=== PATIENT | male | born 1990 | race Caucasian/White ===

== ENCOUNTER 2016-12-23 11:51 | Emergency (ER) | payer OTHER ==
[~2016-12-23] VITALS: Ht 170.2 cm; Wt 73.9 kg
[2016-12-23 11:53] VITALS: BP 119/66
--- NOTE | 2016-12-23 12:21 | Emergency Room Report ---
History of Present Illness General Chief Complaint: Lower Extremity Injury Source: Patient (ROSSI MARTINEZ) Present Illness HPI 26 y/o male complains of bilateral knee instability since 12/15/2016 patient states that he is currently in a rehabilitation as part of the rehabilitation he is started increasing his exercise. States that he's been exercising lower extremities more vigorously over the past 3 weeks and has now noticed that his right knee has been clicking, and giving way on him. States that he feels his ligament and anterior aspect of the right knee is coming out of place and he came back in. States symptoms are worse with running and with walking. There are no relieving factors. Denies having any pain. Describes having a local numbness-like feeling in the medial anterior aspect of the peripatellar region that is provoked with exercise and resolves with rest. Patient denies any LE numbness, tingling, pressure, paralysis, cyanosis, bruising, loss of sensation, or loss of range of motion. 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 (ROSSI MARTINEZ) Review of Systems All Other Systems: negative except mentioned in HPI (ROSSI MARTINEZ) Physical Exam Vital Signs Date Time Temp Pulse Resp B/P Pulse Ox O2 Delivery O2 Flow Rate FiO2 12/23/16 11:53 97.9 75 18 119/66 98 Room Air Sp02 EP Interpretation: reviewed, normal General Appearance: no apparent distress, alert, GCS 15, non-toxic Head: normocephalic, atraumatic Respiratory: no respiratory distress, speaking full sentences Cardiovascular #1: no edema, normal capillary refill Cardiovascular #2: 2+ dorsalis pedis (R), 2+ dorsalis pedis (L) Musculoskeletal: back normal, gait/station normal, normal range of motion, non- tender, no calf tenderness, other - Negative A/P Drawer, Neg Varus/Valgus stress , Neg Hernando, Neg thessaly/pivot shift, No masses felt on popliteal fossa, No edema of knee. Knee has FROM. NTTP, mild crepitus noted medial superior aspect of right patella. Patellar glide negative. Neurologic: alert, oriented x3, responsive, motor strength/tone normal, sensory intact, normal gait, speech normal Psychiatric: judgement/insight normal, memory normal, mood/affect normal, no suicidal/homicidal ideation Skin: normal color, no rash, warm/dry, well hydrated Lymphatic: no adenopathy (ROSSI MARTINEZ.ATaylor) Medical Decision Making PA Attestation Dr. Gorman is my supervising physician with whom patient management has been discussed with. (ROSSI MARTINEZ.ATaylor) Diagnostic Impression: Primary Impression: Patellar tendonitis of right knee Additional Impression: Right anterior knee pain ER Course Pt. presents to the ED c/o knee grinding Ddx considered but are not limited to tear of ligament tear, sprain, strain, fracture, Bursitis, Tendonitis, Bakers Cyst Vital signs: are WNL, pt. is afebrile H&PE are most consistent with tendonitis ORDERS: none required at this time, the diagnosis is clinical ED INTERVENTIONS: none required at this time. DISCHARGE: At this time pt. is stable for d/c to home. Will provide printed patient care instructions, and any necessary prescriptions. Care plan and follow up instructions have been discussed with the patient prior to discharge. (ROSSI MARTINEZ.ATaylor) ER Course Scribe documentation reviewed by me and is accurate. (Carlo Gorman M.D.) Other X-Ray Diagnostic Results Other X-Ray Diagnostic Results : X-Ray Ordered: Right knee complete Date: December 23, 2016 EP Interpretation: Yes Findings: no fractures, no dislocation, no soft tissue swelling Number of Views: 3 Other Impression No acute abnormalities (ROSSI MARTINEZ P.A.) Last Vital Signs Date Time Temp Pulse Resp B/P Pulse Ox O2 Delivery O2 Flow Rate FiO2 12/23/16 11:53 97.9 75 18 119/66 98 Room Air Status: unchanged (ROSSI MARTINEZ P.A.) Disposition: HOME, SELF-CARE Condition: Stable Scripts Naproxen* (NAPROSYN*) 500 Mg Tablet 500 MG ORAL TWICE A DAY for 10 Days, #20 TAB Prov: ROSSI MARTINEZ 12/23/16 Patient Instructions: Knee Sprain Additional Instructions: Take medication as directed. Advise patient to use RICE therapy and avoid exercises for the next 2-3 weeks to help rest the leg. Patient instructed to massage the muscles that are tight or tense, put ice for 5-7 minutes or a frozen bag of peas or cold gel pack on the area for 20 minutes at a time, a few times a day, put heat on the area to reduce pain and stiffness by either taking a hot shower or hot bath, or put a hot towel on the area for no more than 20 minutes at a time. Patient instructed to not use anything too hot that could burn your skin. ROSSI MARTINEZ December 23, 2016 12:21 Carlo Gorman M.D. December 24, 2016 13:10
[2016-12-23] MEDS ORDERED: NAPROSYN500 M1 ORAL (13:04)
[2016-12-23 13:17] VITALS: BP 119/66
--- NOTE | 2016-12-24 10:55 | Diagnostic Imaging Report ---
Indication: Pain 3 views of the right knee were obtained. Findings: No acute fracture, malalignment, or joint effusion are identified. Joint space is relatively well-maintained. Bone mineralization is within normal limits for age. Impression: Negative exam
== END 2016-12-23 13:17 | disposition home or self-care (01) ==
LOC: EMR 12:15
DX: M76.51 Patellar tendinitis, right knee (principal)
CPT/HCPCS: 99283

== ENCOUNTER 2017-04-07 16:58 | Emergency (ER) | payer OTHER ==
[~2017-04-07] VITALS: Ht 167.6 cm; Wt 72.6 kg
[~2017-04-07 16:58] MED LIST: NAPROSYN500 M1 ORAL
[2017-04-07 17:03] VITALS: BP 111/64
--- NOTE | 2017-04-07 17:21 | Emergency Room Report ---
History of Present Illness General Chief Complaint: Upper Extremity Injury Source: Patient (Lesley Leonard) Present Illness HPI 26-year-old male presents to the emergency department complaining of 5/10 in severity pain to the left middle finger x3 days. Status post chopping heavy weight on his finger while at the general. Patient reports tenderness and bruising under the fingernail and some swelling to the distal aspect of the finger. Patient states he is up-to-date with tetanus vaccination. Patient states pain is exacerbated upon palpation and movement.Denies numbness tingling or loss of sensation or gross motor movements of the extremities, incontinence of bowel or bladder. Denies CP, Palpitations, LOC, AMS, dizziness, Changes in Vision, Sensation, paresthesias, or a sudden severe headache. (Lesley Leonard) Allergies: Coded Allergies: No Known Allergies (Unverified , 12/23/16) Patient History Past Medical History: see triage record Past Surgical History: none Pertinent Family History: none Immunizations: UTD Reviewed Nursing Documentation: PMH: Agreed, PSxH: Agreed (Lesley Leonard) Nursing Documentation-PMH Hx Gastrointestinal Problems: Yes - hx bowel obstruction (Lesley Leonard) Review of Systems All Other Systems: negative except mentioned in HPI (Lesley Leonard) Physical Exam Vital Signs Date Time Temp Pulse Resp B/P (MAP) Pulse Ox O2 Delivery O2 Flow Rate FiO2 04/07/17 17:03 98.4 76 15 111/64 97 Room Air Sp02 EP Interpretation: reviewed, normal General Appearance: no apparent distress, alert, GCS 15, non-toxic Head: normocephalic, atraumatic Eyes: bilateral eye normal inspection, bilateral eye PERRL ENT: hearing grossly normal, normal voice Neck: full range of motion Respiratory: lungs clear, normal breath sounds, speaking full sentences Cardiovascular #1: regular rate, rhythm Rectal: deferred Genitourinary: normal inspection Musculoskeletal: back normal, gait/station normal, normal range of motion, tender - ttp to the distal left middle finger with notable subungual hematoma, some swelling noted, FROM. Neurologic: alert, oriented x3, responsive, motor strength/tone normal, sensory intact, speech normal Psychiatric: judgement/insight normal, memory normal, mood/affect normal Skin: normal color, no rash, warm/dry, well hydrated, other - subungual hematoma noted to the left middle finger nail. (Lesley Leonard) Procedures Nail Trepanation Nail Trepanation : Consent: Verbal Nail Trepanation Location: left middle finger Method of Drainage: nail cauterized Sterile Dressing Applied: Yes Finger Splint: No Patient Tolerated: Well Complications: None (Lesley Leonard) Medical Decision Making PA Attestation Dr. Gorman is my supervising Physician whom patient management has been discussed with. (Lesley Leonard) Diagnostic Impression: Primary Impression: Subungual hematoma of finger of left hand Qualified Codes: S60.10XA - Contusion of unspecified finger with damage to nail, initial encounter ER Course 26-year-old male presents to the emergency department complaining of 5/10 in severity pain to the left middle finger x3 days. Status post chopping heavy weight on his finger while at the general. Patient reports tenderness and bruising under the fingernail and some swelling to the distal aspect of the finger. Patient states he is up-to-date with tetanus vaccination. Patient states pain is exacerbated upon palpation and movement.Denies numbness tingling or loss of sensation or gross motor movements of the extremities, incontinence of bowel or bladder. Denies CP, Palpitations, LOC, AMS, dizziness, Changes in Vision, Sensation, paresthesias, or a sudden severe headache. Ddx considered but are not limited to Fracture, dislocation, contusion, Sprain/ Strain/Spasm, subungual hematoma. Vital signs: are WNL, pt. is afebrile H&PE are most consistent with musculoskeletal injury will perform imaging to r/ o fractures/dislocations. ORDERS: - X-ray Left Hand 3 views - negative for fx, Dislocation, or significant soft tissue injury, per preliminary read in ED by Dr. Gorman - interpretation is scribed by PA. ED INTERVENTIONS: - Nail Trepanation using electric cautery pen. DISCHARGE: At this time pt. is stable for d/c to home. Will provide printed patient care instructions, and any necessary prescriptions. Care plan and follow up instructions have been discussed with the patient prior to discharge. (Lesley Leonard) Other X-Ray Diagnostic Results Other X-Ray Diagnostic Results : Interpreting ER Provider: [employer] documentation reviewed by me and is accurate, Carlo Gorman MD. (Carlo Gorman M.D.) Last Vital Signs Date Time Temp Pulse Resp B/P (MAP) Pulse Ox O2 Delivery O2 Flow Rate FiO2 04/07/17 17:03 98.4 76 15 111/64 97 Room Air (Lesley Leonard) Disposition: HOME, SELF-CARE Condition: Stable Scripts Acetaminophen* (TYLENOL EXTRA STRENGTH*) 500 Mg Tablet 500 MG ORAL Q6H, #20 TAB 0 Refills Prov: Lesley Leonard 04/07/17 Patient Instructions: Subungual Hematoma Additional Instructions: Follow up with a Primary Care Provider in 3-5 days, even if your symptoms have resolved. --Please review list of primary care clinics, if you do not already have a primary care provider Return sooner to ED if new symptoms occur, or current symptoms become worse. - Please note that this Emergency Department Report was dictated using [employer] staff specialized employment technology software, occasionally this can lead to erroneous entry secondary to interpretation by the dictation equipment. Lesley Leonard Apr 07, 2017 17:21 Carlo Gorman M.D. Apr 09, 2017 04:19
[2017-04-07] MEDS ORDERED: TYLENOL EXTRA500 MG ORAL (17:49)
[2017-04-07 17:54] VITALS: BP 111/67
--- NOTE | 2017-04-08 11:55 | Diagnostic Imaging Report ---
Indication: pain Findings: 3 views of the left hand were obtained. Normal bony mineralization and alignment are demonstrated. No acute fractures, erosions, or periosteal reaction are seen. Soft tissues are unremarkable. Impression: Negative examination of the left hand.
== END 2017-04-07 17:54 | disposition home or self-care (01) ==
LOC: EMR 17:27
DX: S60.10XA Contusion of unspecified finger with damage to nail, initial encounter (principal); W22.8XXA Striking against or struck by other objects, initial encounter; Y93.9 Activity, unspecified; Y92.9 Unspecified place or not applicable
CPT/HCPCS: 99283

== ENCOUNTER 2019-03-07 10:44 | Emergency (ER) | payer MEDICAID, OTHER ==
[~2019-03-07] VITALS: Ht 167.6 cm; Wt 74.8 kg
[~2019-03-07 10:44] MED LIST changes: +TYLENOL EXTRA500 MG ORAL
[2019-03-07 10:46] VITALS: BP 124/75
--- NOTE | 2019-03-07 10:50 | NUR ---
ED Nurse Note: Patient walked into ED c/o couhging for days. patient's temperature upon triage 98.2F
[2019-03-07] MEDS ORDERED: TRAZODONE HCL150 MG ORAL (10:51)
[2019-03-07] MEDS ORDERED: CLONIDINE1 EAC1 TD (10:51)
--- NOTE | 2019-03-07 10:58 | Emergency Room Report ---
History of Present Illness General Chief Complaint: Upper Respiratory Illness Source: Patient, Medical Record Present Illness HPI This is a 28-year-old male who presented after increased cough and congestion. Patient reports having increased nasal congestion and nonproductive cough worse at night. He reports having some sore throat. He denies any fever. He reports smoking approximate 5 cigarettes a day. He is currently in a rehab program for opiates patient previously been on Suboxone but is not currently. He had been on a detox facility for 4 days prior to initiating his current location of treatment. Allergies: Coded Allergies: No Known Allergies (Unverified , 12/23/16) Patient History Past Medical History: see triage record Reviewed Nursing Documentation: PMH: Agreed; PSxH: Agreed Nursing Documentation-PMH Past Medical History: No History, Except For Hx Gastrointestinal Problems: Yes - hx bowel obstruction Review of Systems All Other Systems: negative except mentioned in HPI Physical Exam Vital Signs Date Time Temp Pulse Resp B/P (MAP) Pulse Ox O2 Delivery O2 Flow Rate FiO2 03/07/19 10:46 98.2 94 18 124/75 (91) 96 Room Air General Appearance: well appearing, no apparent distress, alert, GCS 15, non- toxic Head: normocephalic, atraumatic ENT: hearing grossly normal, normal voice Neck: full range of motion, supple Respiratory: no respiratory distress, no accessory muscle use, speaking full sentences Cardiovascular #1: normal inspection Gastrointestinal: normal inspection, normal bowel sounds, non tender, soft Musculoskeletal: no calf tenderness Neurologic: normal inspection, alert, oriented x3, responsive, normal gait Psychiatric: mood/affect normal Skin: no rash Medical Decision Making Diagnostic Impression: Primary Impression: Viral respiratory infection ER Course Patient presented with cough. Differential diagnosis include was not limited to pneumonia, reactive airway disease, bronchitis, upper respiratory infection among others. Patient has a benign exam and does not appear to require any further imaging or laboratory testing at this time. Patient was noted to have some nonproductive cough. Patient has symptoms consistent with a viral respiratory infection. He does not appear to have any evidence of abnormal lung findings. He was given breathing treatment and had no improvement. Patient does not appear to have any evidence of pneumonia or risk factors for pulmonary embolism. He appears to be stable for discharge. Patient is advised to return if worse. He was given prescription for medications for symptomatic treatment. Last Vital Signs Date Time Temp Pulse Resp B/P (MAP) Pulse Ox O2 Delivery O2 Flow Rate FiO2 03/07/19 10:46 98.2 94 18 124/75 (91) 96 Room Air Status: improved Disposition: HOME, SELF-CARE Condition: Stable Scripts Guaifenesin/Dextromethorphan (Guaifenesin Dm Syrup) 5 Ml Syrup 1 TSP ORAL Q8H, #118 ML 0 Refills Prov: Pete Zelaya MD 03/07/19 Pete Zelaya MD Mar 07, 2019 10:57
[2019-03-07] MEDS ORDERED: GUAIFENESIN DM118 M1 ORAL (11:00)
[2019-03-07] MEDS ORDERED: Albuterol/Ipratropium 3ml neb HHN ONE (11:00)
--- NOTE | 2019-03-07 11:00 | NUR ---
ED Nurse Note: RT notified
[2019-03-07 11:30] VITALS: BP 124/75
--- NOTE | 2019-03-07 11:30 | NUR ---
ER DISCHARGE NOTE: Patient is cleared to be discharged per ERMD DR CHANDRA, pt is aox4, on room air, with stable vital signs. pt was given dc and prescription instructions, pt was able to verbalize understanding, pt id band removed without complications. pt is able to ambulate with steady gait. pt took all belongings.
== END 2019-03-07 11:30 | disposition home or self-care (01) ==
LOC: EMR 11:15
DX: J06.9 Acute upper respiratory infection, unspecified (principal); F17.210 Nicotine dependence, cigarettes, uncomplicated
CPT/HCPCS: 94640; 94664; 99283; J7620

== ENCOUNTER 2020-09-25 01:42 | Emergency (ER) | payer MEDICAID ==
[~2020-09-25] VITALS: Ht 167.6 cm; Wt 74.8 kg
[~2020-09-25 01:42] MED LIST changes: +CLONIDINE1 EAC1 TD; +GUAIFENESIN DM118 M1 ORAL; +TRAZODONE HCL150 MG ORAL
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
[2020-09-25 01:55] VITALS: BP 121/74
[2020-09-25] MEDS ORDERED: HYDROCODON-ACE1 EA15 ORAL (02:19)
[2020-09-25] MEDS ORDERED: IBUPROFEN600 M1 ORAL (02:19)
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
--- NOTE | 2020-09-25 02:44 | NUR ---
ER DISCHARGE NOTE: Patient is cleared to be discharged per ER MD, pt is aaox4, on room air, with stable vital signs. pt was given d/c and prescription instructions, pt was able to verbalize understanding, pt id band removed. pt is able to ambulate with steady gait. pt took all belongings.
[2020-09-25 02:47] VITALS: BP 121/74
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
== END 2020-09-25 02:49 | disposition home or self-care (01) ==
LOC: EMR 01:58
DX: S39.012A Strain of muscle, fascia and tendon of lower back, initial encounter (principal); V43.52XA Car driver injured in collision with other type car in traffic accident, initial encounter; Y92.410 Unspecified street and highway as the place of occurrence of the external cause
CPT/HCPCS: 72020; Z7502; 99283